=== PATIENT | female | born 1990 | race Caucasian/White ===

== ENCOUNTER 2021-07-07 07:25 | Outpatient (CLI) | payer BC, OTHER, SELFPAY ==
--- NOTE | ~2021-07-07 | CT_ITS ---
EXAMINATION: CT abdomen pelvis w con EXAM DATE: 07/07/2021 08:06 INDICATION: Bilateral lower abdominal pain. TECHNIQUE: Spiral CT of the abdomen and pelvis was performed following intravenous injection of 100 m L Omnipaque 350. Axial, coronal and sagittal images of the abdomen and pelvis were reviewed. The do se-length product (DLP) for this examination was 246.99 mGy-cm. The exposure was tailored according to patient size (auto mA exposure control), and iterative reconstruction (ASIR) was used as additiona l dose reduction technique. Comparison is made to prior examination from 12/12/2013. FINDINGS: The liver, spleen, adrenal glands and pancreas are unremarkable. Gallbladder is unremarkab le. No biliary obstruction. Portal and splenic veins are patent. Kidneys enhance symmetrically. T here is no hydronephrosis. The uterus is not identified and has likely been surgically resected. Sm all free pelvic fluid, physiologic. The bladder is unremarkable. There is no retroperitoneal or pelv ic lymphadenopathy. Probable identification of a normal appendix. No pericecal inflammation. The stomach and small lópez l are unremarkable. There is expected amount of colonic stool. No free intraperitoneal gas. The heart is normal in size. There are no pericardial or pleural effusions. The lung bases are unremark able. There are no osteoblastic or osteolytic lesions identified. IMPRESSION: Interval hysterectomy. Small free pelvic fluid, physiologic. Reviewed, dictated and finalized at location A.
== END 2021-07-07 07:26 | disposition home or self-care (01) ==
DX: R10.31 Right lower quadrant pain (principal); R10.32 Left lower quadrant pain
CPT/HCPCS: 74177; Q9967